=== PATIENT | female | born 1955 | race Caucasian/White ===

== ENCOUNTER 2016-09-03 11:23 | Emergency (ER) | payer MEDICARE ==
[2016-09-03 11:31] VITALS: BP 138/58; PULSE 73; RESP 20; TEMP 98.6; O2SAT 96
[2016-09-03] MEDS ORDERED: PANTOPRAZOLE SODIUM 40 MG VIAL IVP ONE (11:45)
[2016-09-03] MEDS ORDERED: ALUMINUM/MAGNESIUM/SIMETH 30 ML CUP PO ONE (11:45)
[2016-09-03] MEDS ORDERED: LIDOCAINE VISCOUS 2% SOLN 15 ML UDC PO ONE (11:45)
[2016-09-03] MEDS ORDERED: SODIUM CHLORIDE 0.9% FLUSH 10 ML FLUSH IV FLUSH PRN (11:45)
--- NOTE | 2016-09-03 11:48 | PD ---
HPI Chief Complaint: GI Complaint Time Seen by Provider: 11:41 Travel History International Travel<30 days: No Contact w/Intl Traveler<30days: No Traveled to known affect area: No History of Present Illness HPI 61-year-old obese female here with complaint of abdominal pain and nausea. Patient states that yesterday she began to have periumbilical and epigastric abdominal pain. Describes this as crampy, mild. She has not found anything that makes the pain better or worse. She has associated nausea, and vomited twice yesterday. She was able to keep the mary cracker down last night and scrambled eggs this morning but still feels persistently nauseous. History of GERD when she was younger, but not recently. She denies any history of hepatobiliary pathology. [facility] Past Medical History Hypertension: Yes Psychiatric: Yes (anxiety) Past Surgical History Other Surgery: Yes (knee) Social History Tobacco Use: No (former smoker) Allergies-Medications (Allergen,Severity, Reaction): Coded Allergies: Codeine (Verified Allergy, Unknown, 09/03/16) Penicillin (Verified Allergy, Unknown, 09/03/16) Reported Meds & Prescriptions Reported Meds & Active Scripts Active Reported Hydroxyzine HCl 10 Mg Tab 10 Mg PO TID PRN Ditropan (Oxybutynin Chloride) 5 Mg Tab 5 Mg PO Q12HR Zoloft (Sertraline HCl) 100 Mg Tab 150 Mg PO DAILY Lisinopril 20 Mg Tab 20 Mg PO DAILY Mobic (Meloxicam) 7.5 Mg Tab 5 Mg PO DAILY Review of Systems Except as stated in HPI: all other systems reviewed are Neg Physical Exam Narrative GENERAL: Obese female in no acute distress SKIN: Focused skin assessment warm/dry. HEAD: Normocephalic. EYES: No scleral icterus. No injection or drainage. ENT: Mucous membranes pink and moist. NECK: Supple CARDIOVASCULAR: Regular rate and rhythm. No murmur appreciated. RESPIRATORY: No accessory muscle use. Clear to auscultation. Breath sounds equal bilaterally. GASTROINTESTINAL: Obese, soft. Epigastric and periumbilical abdominal tenderness to palpation without rebound or guarding. No CVA tenderness. MUSCULOSKELETAL: No obvious deformities. No edema. NEUROLOGICAL: Awake and alert. Normal speech. PSYCHIATRIC: Appropriate mood and affect; insight and judgment normal. Data Data Last Documented VS Vital Signs Date Time Temp Pulse Resp B/P Pulse Ox O2 Delivery O2 Flow Rate FiO2 09/03/16 12:11 96 Room Air 09/03/16 11:31 98.6 73 20 138/58 Orders Complete Blood Count With Diff (09/03/16 11:45) Comprehensive Metabolic Panel (09/03/16 11:45) Lipase (09/03/16 11:45) Iv Access Insert/Monitor (09/03/16 11:45) Oximetry (09/03/16 11:45) Pantoprazole Inj (Protonix Inj) (09/03/16 11:45) Sodium Chloride 0.9% Flush (Ns Flush) (09/03/16 11:45) Al-Mag Hy-Si 40-40-4 Mg/Ml Liq (Mag-Al P (09/03/16 11:45) Lidocaine 2% Viscous (Xylocaine 2% Visco (09/03/16 11:45) Ondansetron Inj (Zofran Inj) (09/03/16 12:00) Labs Laboratory Tests Test 09/03/16 11:55 White Blood Count 6.8 TH/MM3 Red Blood Count 4.72 MIL/MM3 Hemoglobin 14.2 GM/DL Hematocrit 41.5 % Mean Corpuscular Volume 88.0 FL Mean Corpuscular Hemoglobin 30.1 PG Mean Corpuscular Hemoglobin 34.2 % Concent Red Cell Distribution Width 13.6 % Platelet Count 275 TH/MM3 Mean Platelet Volume 7.9 FL Neutrophils (%) (Auto) 58.5 % Lymphocytes (%) (Auto) 26.1 % Monocytes (%) (Auto) 8.2 % Eosinophils (%) (Auto) 4.5 % Basophils (%) (Auto) 2.7 % Neutrophils # (Auto) 3.9 TH/MM3 Lymphocytes # (Auto) 1.8 TH/MM3 Monocytes # (Auto) 0.6 TH/MM3 Eosinophils # (Auto) 0.3 TH/MM3 Basophils # (Auto) 0.2 TH/MM3 CBC Comment DIFF FINAL Differential Comment Sodium Level 141 MEQ/L Potassium Level 4.5 MEQ/L Chloride Level 108 MEQ/L Carbon Dioxide Level 28.1 MEQ/L Anion Gap 5 MEQ/L Blood Urea Nitrogen 16 MG/DL Creatinine 1.00 MG/DL Estimat Glomerular Filtration 57 ML/MIN Rate Random Glucose 90 MG/DL Calcium Level 8.6 MG/DL Total Bilirubin 0.3 MG/DL Aspartate Amino Transf 16 U/L (AST/SGOT) Alanine Aminotransferase 31 U/L (ALT/SGPT) Alkaline Phosphatase 98 U/L Total Protein 6.7 GM/DL Albumin 3.3 GM/DL Lipase 141 U/L MDM Medical Decision Making Medical Screen Exam Complete: Yes Emergency Medical Condition: Yes Medical Record Reviewed: Yes Differential Diagnosis 61-year-old obese female here with 1 day of epigastric and periumbilical abdominal pain, nausea and vomiting. Differential includes GERD, gastritis, pancreatitis, peptic ulcer disease, hepatobiliary pathology and less likely bowel obstruction or peritoneal pathology given her overall benign abdominal examination. Narrative Course Patient placed on monitor. Given Zofran, IV PPI and GI cocktail. CBC, CMP, lipase obtained and unremarkable. We'll discharge to home with PPI and antiemetic Diagnosis Primary Impression: Gastritis Qualified Code: K29.00 - Acute gastritis without hemorrhage, unspecified gastritis type Additional Impression: Nausea and vomiting Qualified Code: R11.2 - Non-intractable vomiting with nausea, unspecified vomiting type Referrals: Primary Care Physician as needed Additional Instructions: Zofran as needed for nausea, vomiting. Omeprazole as needed for pain, antacids. Follow-up with primary care provider if symptoms persist. Med/Other Pt SpecificInfo: Prescription(s) given Scripts Ondansetron Odt (Zofran Odt)8 Mg Tab8 Mg SL Q8H PRN (NAUSEA OR VOMITING) #10 TAB Ref 0 Prov:Cele Waldrop MD 09/03/16 Omeprazole 40 Mg Cap40 Mg PO DAILY #30 CAP Ref 0 Prov:Cele Waldrop MD 09/03/16 Disposition: 01 DISCHARGE HOME Condition: Stable Cele Waldrop MD Sep 03, 2016 11:48
[2016-09-03] MEDS ORDERED: ONDANSETRON HCL 4 MG/2 ML VIAL IV PUSH ONE (12:00)
[2016-09-03 12:07] LABS: AUTOMATED NEUTROPHIL # 3.9 TH/MM3 (1.8-7.7); BASOPHIL # 0.2 TH/MM3 (0-0.2); BASOPHIL % 2.7 % (0.0-2.0); EOSINOPHIL # 0.3 TH/MM3 (0-0.4); EOSINOPHIL % 4.5 % (0.0-4.0); HEMATOCRIT 41.5 % (35.0-46.0); HEMO FLAGS DIFF FINAL; LYMPH % 26.1 % (9.0-44.0); LYMPHOCYTE # 1.8 TH/MM3 (1.0-4.8); MEAN CORPUSCULAR HEMOGLOBIN 30.1 PG (27.0-34.0); MEAN CORPUSCULAR HGB CONC 34.2 % (32.0-36.0); MONO % 8.2 % (0.0-8.0); NEUT % 58.5 % (16.0-70.0); PLATELET COUNT 275 TH/MM3 (150-450); RED BLOOD COUNT 4.72 MIL/MM3 (4.00-5.30); RED CELL DISTRIBUTION WIDTH 13.6 % (11.6-17.2); WHITE BLOOD COUNT 6.8 TH/MM3 (4.0-11.0)
[2016-09-03 12:10] LABS: CHLORIDE 108 MEQ/L (98-107); POTASSIUM 4.5 MEQ/L (3.5-5.1); SODIUM (NA) 141 MEQ/L (136-145)
[2016-09-03 12:11] VITALS: O2SAT 96
[2016-09-03 12:14] LABS: ANION GAP 5 MEQ/L (5-15); BICARBONATE 28.1 MEQ/L (21.0-32.0); BLOOD UREA NITROGEN 16 MG/DL (7-18)
[2016-09-03] MEDS ORDERED: HYDR-755 PO (12:16)
[2016-09-03] MEDS ORDERED: OXYB5TAB10 PO (12:16)
[2016-09-03] MEDS ORDERED: LISI-515 PO (12:16)
[2016-09-03] MEDS ORDERED: MOBI7.5T PO (12:16)
[2016-09-03] MEDS ORDERED: ZOLO100T PO (12:16)
[2016-09-03 12:17] LABS: ALT (GPT) 31 U/L (10-53); AST (GOT) 16 U/L (15-37); GLOMERULAR FILTRATION RATE 57 ML/MIN (>89)
[2016-09-03 12:19] LABS: TOTAL BILIRUBIN ADULT 0.3 MG/DL (0.2-1.0)
[2016-09-03 12:20] LABS: ALKALINE PHOSPHATASE 98 U/L (45-117)
[2016-09-03] MEDS ORDERED: ZOFR8TAB4 SL (12:23)
[2016-09-03] MEDS ORDERED: OMEP40CA2 PO (12:23)
== END 2016-09-03 12:32 | disposition home or self-care (01) ==
LOC: PHED 11:23
DX: K29.00 Acute gastritis without bleeding (principal); R11.2 Nausea with vomiting, unspecified; E66.9 Obesity, unspecified; I10 Essential (primary) hypertension; Z86.59 Personal history of other mental and behavioral disorders
CPT/HCPCS: 80053; 83690; 85025; 96374; 96375; 99284; C9113; J2405